=== PATIENT | male | born 1975 | race Two or more races ===

== ENCOUNTER → 2016-04-09 13:50 | Emergency (ER) | payer SELFPAY ==
[2016-04-09 13:57] VITALS: BP 146/83
== END | disposition left against medical advice (07) ==
LOC: ED 13:50
DX: R06.02 Shortness of breath (principal)

== ENCOUNTER 2016-05-18 11:31 | Emergency (ER) | payer BC ==
[2016-05-18] MEDS ORDERED: Aspirin Low Dose CHEW TAB* 81 MG PO ONE (12:31)
[2016-05-18 12:45] LABS: Hematocrit 43 % (42-52); Hemoglobin 14.7 g/dl (14.0-18.0); Mean Corpuscular HGB Conc 34 g/dl (31-36); Mean Corpuscular Hemoglobin 29 pg (27-31); Mean Corpuscular Volume 85 fL (80-94); Mean Platelet Volume 7 um3 (7.4-10.4); Red Blood Count 5.01 10^6/ul (4.0-5.4); Red Cell Distribution Width 13 % (10.5-15); White Blood Count 7.4 10^3/ul (3.5-10.8)
[2016-05-18] MEDS ORDERED: hydrOXYzine HCL TAB* 50 MG PO ONE (12:52)
[2016-05-18] MEDS ORDERED: Ketorolac INJ* 30 MG/ML 1 ML VIAL IV PUSH ONE (12:52)
[2016-05-18 13:00] LABS: Albumin 4.7 g/dL (3.2-5.2); BUN/Creatinine Ratio 19.4 (8-20); Calcium 9.8 mg/dL (8.6-10.3); EGFR African American 103.4 (>60); EGFR Non-African American 80.4 (>60); Globulin 3.2 g/dL (2-4); Magnesium 2.2 mg/dL (1.9-2.7); Potassium 3.9 mmol/L (3.5-5.0); Total Bilirubin 0.6 mg/dL (0.2-1.0); Total Protein 7.9 g/dL (6.4-8.9)
--- NOTE | 2016-05-18 13:16 | RAD ---
INDICATION: Chest pain COMPARISON: None. TECHNIQUE: Single AP portable view of the chest was obtained. FINDINGS: Image quality is compromised due to the relative inferiority of a portable chest x-ray. The heart and mediastinum exhibit normal size and contour. The lungs are grossly clear. There is no evidence of a large pleural effusion. Visualized bones are normal for the patient's age. IMPRESSION: No radiographic evidence for acute cardiopulmonary abnormality on this portable chest x-ray.
[2016-05-18 14:59] LABS: Urine Bilirubin Negative (Negative); Urine Glucose Negative (Negative); Urine Nitrite Negative (Negative)
--- NOTE | 2016-05-18 15:04 | ED ---
Carlos Stahl Karl, scribed for Travis Samson MD on 05/18/16 at 1241 . HPI Chest Pain - HPI Summary HPI Summary: 40 y/o M presents with c/o weakness and constant midsternal 5/10 CP for the past several days. Pt stated that he had a near-syncope several days ago and has been feeling "really weak" with constant CP that "just won't go away." Pt also reported SOB with these sx for the past few months, beginning after the mother of his children past away in a car accident. Pt denied nausea and vomiting. - History of Current Complaint Chief Complaint: EDChestPainROMI Time Seen by Provider: 05/18/16 12:31 Hx Obtained From: Patient Timing: Constant Initial Severity: Moderate Current Severity: Moderate Pain Intensity: 5 - CP Pain Scale Used: 0-10 Numeric Chest Pain Location: Mid Sternal - Allergy/Home Medications Allergies/Adverse Reactions: Allergies Allergy/AdvReac Type Severity Reaction Status Date / Time No Known Allergies Allergy Verified 05/18/16 11:54 PMH/Surg Hx/FS Hx/Imm Hx Previously Healthy: Yes Infectious Disease History: No Infectious Disease History: Denies: Traveled Outside the [place] in Last 30 Days - Family History Known Family History: Positive: Other - pt is poor historian, has no knowledge of family hx - Social History Alcohol Use: Rare Substance Use Type: Reports: None Smoking Status (MU): Current Some Day Smoker Review of Systems Constitutional: Negative Eyes: Negative ENT: Negative Positive: Chest Pain Positive: Shortness Of Breath Negative: Vomiting, Nausea Genitourinary: Negative Musculoskeletal: Negative Skin: Negative Positive: Weakness Psychological: Normal All Other Systems Reviewed And Are Negative: Yes Physical Exam - Summary Physical Exam Summary: VITAL SIGNS: Reviewed. GENERAL: Patient is a well developed and nourished male who is lying comfortable in the stretcher. Patient is not in any acute respiratory distress. HEAD AND FACE: No signs of trauma. No ecchymosis, hematomas or skull depressions. No sinus tenderness. EYES: PERRLA, EOMI x 2, No injected conjunctiva, no nystagmus. EARS: Hearing grossly intact. Ear canals and tympanic membranes are within normal limits. MOUTH: Oropharynx within normal limits. NECK: Supple, trachea is midline, no adenopathy, no JVD, no carotid bruit, no c- spine tenderness, neck with full ROM. CHEST: Symmetric, positive reproduction of chest tenderness at palpation LUNGS: Clear to auscultation bilaterally. No wheezing or crackles. CVS: Regular rate and rhythm, S1 and S2 present, no murmurs or gallops appreciated. ABDOMEN: Soft, non-tender. No signs of distention. No rebound no guarding, and no masses palpated. Bowel sounds are normal. EXTREMITIES: FROM in all major joints, no edema, no cyanosis or clubbing. NEURO: Alert and oriented x 3. No acute neurological deficits. Speech is normal and follows commands. SKIN: Dry and warm Triage Information Reviewed: Yes Vital Signs On Initial Exam: Initial Vitals Temp Pulse Resp BP Pulse Ox 97.7 F 81 17 156/87 98 05/18/16 11:49 05/18/16 11:49 05/18/16 11:49 05/18/16 11:49 05/18/16 11:49 Vital Signs Reviewed: Yes Diagnostics - Vital Signs Vital Signs Temp Pulse Resp BP Pulse Ox 05/18/16 11:49 97.7 F 81 17 156/87 98 - Laboratory Lab Results: Lab Results 05/18/16 Range/Units 12:35 WBC 7.4 (3.5-10.8) 10^3/ul RBC 5.01 (4.0-5.4) 10^6/ul Hgb 14.7 (14.0-18.0) g/dl Hct 43 (42-52) % MCV 85 (80-94) fL MCH 29 (27-31) pg MCHC 34 (31-36) g/dl RDW 13 (10.5-15) % Plt Count 252 (150-450) 10^3/ul MPV 7 L (7.4-10.4) um3 Neut % (Auto) 66.1 (38-83) % Lymph % (Auto) 27.8 (25-47) % [place] % (Auto) 5.0 (1-9) % Eos % (Auto) 0.7 (0-6) % Baso % (Auto) 0.4 (0-2) % Absolute Neuts (auto) 4.9 (1.5-7.7) 10^3/ul Absolute Lymphs (auto) 2.1 (1.0-4.8) 10^3/ul Absolute Monos (auto) 0.4 (0-0.8) 10^3/ul Absolute Eos (auto) 0.1 (0-0.6) 10^3/ul Absolute Basos (auto) 0 (0-0.2) 10^3/ul Absolute Nucleated RBC 0 10^3/ul Nucleated RBC % 0 Result Diagrams: 05/18/16 12:35 05/18/16 12:35 Lab Statement: Any lab studies that have been ordered have been reviewed, and results considered in the medical decision making process. - Radiology CXR Xray Interpretation: No Acute Changes Radiology Interpretation Completed By: Radiologist - IMPRESSION: No radiographic evidence for acute cardiopulmonary abnormality on this portable chest x-ray. - EKG 11:37 EKG Interpretation: NSR at 69 bpm, No ST elevation Chest Pain Course/Dx - Course Assessment/Plan: Blood work wnl except for glucose of 113. Troponin is 0.0. CXR : No acute cardiopulmonary pathology. EKG: NSR at 69 BPM w/o LESLIE. Patient reported a lot of anxiety and similar symptoms for the last couple months after her significant other pass away. He reports he has been under a lot of stress. I believe most of his symptoms are secondary to his anxiety. Since all workup is negative. In the ED course he was hydrated with IV fluids and he was given Toradol ofr the CP and Atarax for anxiety. After these medications all his symptoms resolved. Patient reports that all symptoms have resolved. Patient has been observed in the ER for approximately 3 hours. Because the patient has no significant comorbidities and no family history of cardiovascular disease the patient will be discharged home with follow up of PMD. I discussed all the findings and test results with the patient. Patient was instructed to return to the emergency room immediately if any of the symptoms return or worsens. Patient understands and agrees. Plan of care was discussed with the patient and patient understands and agrees. All questions were answered at patient satisfaction. There were no further complaints or concerns. PE before discharge : CVS: S1 and S2 present. No murmurs appreciated. Abdominal exam before discharge: Soft, non-tender. No signs of distention. No rebound no guarding, and no masses palpated. Bowel sounds are normal. Patient is alert and oriented x 3. Patient is hemodynamically stable. - Chest Pain Differential Diagnosis/HQI/PQRI: Angina, Chest Wall, GI Disease, Lower Respiratory Infection, Other: - Anxiety - Diagnoses Provider Diagnoses: Chest pain, Anxiety Discharge - Discharge Plan Condition: Stable Disposition: HOME Prescriptions: Ibuprofen TAB* [Motrin TAB* 600 MG] 600 mg PO Q6H PRN #20 tab PRN Reason: Pain hydrOXYzine HCL TAB* [Atarax TAB*] 25 mg PO TID PRN #30 tab PRN Reason: Anxiety Patient Education Materials: Chest Pain (ED), Anxiety (ED) Referrals: No Primary Care Phys,NOPCP [Primary Care Provider] - Additional Instructions: Please follow up with your primary care provider. Return to the emergency department for changing or worsening symptoms. The documentation as recorded by the Carlos ricardo Karl accurately reflects the service I personally performed and the decisions made by Chapin douglas Walter, MD.
[2016-05-18 15:17] VITALS: BP 122/82
== END 2016-05-18 15:18 | disposition home or self-care (01) ==
LOC: ED 11:31
DX: R07.9 Chest pain, unspecified (principal); R06.02 Shortness of breath; F41.9 Anxiety disorder, unspecified
CPT/HCPCS: 36415; 71010; 80053; 81003; 82553; 83735; 83874; 83880; 84484; 85025; 93005; 99283; A9270-GY; J1885

== ENCOUNTER 2017-02-25 01:24 | Emergency (ER) | payer BC ==
[2017-02-25] MEDS ORDERED: Amoxicillin PO (*) 500 MG CAP PO ONE (01:55)
[2017-02-25] MEDS ORDERED: Ketorolac INJ* 60 MG/2 ML VIAL IM ONE (01:55)
--- NOTE | 2017-02-25 02:00 | ED ---
Throat Pain/Nasal Congestion - HPI Summary HPI Summary: 41 male presents to ED with complaints of dental pain that began 2-3 days ago and has worsened. States he took some old percocet without relief. No recent trauma/injury, just caries and exposed nerve roots. Denies redness, swelling, drainage, difficulty breathing, difficulty swallowing and fever/chills. States pain is worsened with eating and using teeth. Pain starts on front upper right tooth and radiates into right upper molars. States he has had this pain in the past and "has bad teeth". Could not take the pain any longer, plans on seeing a dentist tomorrow. No other complaints. No PMHx. - History of Current Complaint Chief Complaint: EDDentalPain Time Seen by Provider: 02/25/17 01:40 Hx Obtained From: Patient Onset/Duration: Sudden Onset, Lasting Days, Still Present, Worse Since Severity: Moderate Cough: None - Allergies/Home Medications Allergies/Adverse Reactions: Allergies Allergy/AdvReac Type Severity Reaction Status Date / Time No Known Allergies Allergy Verified 02/25/17 01:37 PMH/Surg Hx/FS Hx/Imm Hx Endocrine/Hematology History: Denies: Hx Diabetes Cardiovascular History: Denies: Hx Hypertension Respiratory History: Denies: Hx Asthma - Immunization History Immunizations Up to Date: Yes Infectious Disease History: No Infectious Disease History: Denies: Traveled Outside the [place] in Last 30 Days - Family History Known Family History: Positive: Other - pt is poor historian, has no knowledge of family hx - Social History Alcohol Use: Rare Substance Use Type: Reports: None Smoking Status (MU): Current Some Day Smoker Review of Systems Constitutional: Negative Positive: Dental Pain Cardiovascular: Negative Respiratory: Negative All Other Systems Reviewed And Are Negative: Yes Physical Exam Triage Information Reviewed: Yes Vital Signs On Initial Exam: Initial Vitals Temp Pulse Resp BP Pulse Ox 97.1 F 74 16 133/109 100 02/25/17 01:25 02/25/17 01:25 02/25/17 01:25 02/25/17 01:25 02/25/17 01:25 Vital Signs Reviewed: Yes Appearance: Positive: Well-Appearing, No Pain Distress, Well-Nourished Skin: Positive: Warm, Skin Color Reflects Adequate Perfusion, Dry. Negative: Cyanosis @, Pale, Erythema @ Head/Face: Positive: Normal Head/Face Inspection. Negative: Scalp Eyes: Positive: Conjunctiva Clear ENT: Positive: Hearing grossly normal Dental: Positive: Gross Decay/Caries @, Dental Fracture @. Negative: Percussion Tenderness @, Abscess @, Cervical Lymphadenopathy Neck: Positive: Supple, Nontender, No Lymphadenopathy Respiratory/Lung Sounds: Positive: Clear to Auscultation, Breath Sounds Present. Negative: Rales, Rhonchi, Wheezes Cardiovascular: Positive: Normal, RRR, Pulses are Symmetrical in both Upper and Lower Extremities. Negative: Murmur, Rub Musculoskeletal: Positive: Normal, Strength/ROM Intact Neurological: Positive: Normal, Sensory/Motor Intact, Alert, Oriented to Person Place, Time - [place] Coma Scale Coma Scale Total: 15 Diagnostics - Vital Signs Vital Signs Temp Pulse Resp BP Pulse Ox 02/25/17 01:25 97.1 F 74 16 133/109 100 - Laboratory Lab Statement: Any lab studies that have been ordered have been reviewed, and results considered in the medical decision making process. EENT Course/Dx - Course Course Of Treatment: given topical anesthetic. toradol and amox. continue at home. pain management and antibiotic. salt water swishes. fluids. avoid cold foods. follow up with dentist. aware of worsening signs and symptoms. no concern for other etiology at this time. - Differential Diagnoses Differential Diagnoses: Dental Abscess, Dental Caries, Fractured Tooth - Diagnoses Provider Diagnoses: Pain, dental, Dental infection Discharge - Discharge Plan Condition: Stable Disposition: HOME Prescriptions: Amoxicillin PO (*) [Amoxicillin 500 MG CAP*] 500 mg PO Q12H #19 cap HYDROcodone/ACETAMIN 5-325 MG* [[place] 5-325 TAB*] 1 tab PO Q6H PRN #10 tab MDD 2 PRN Reason: Pain Patient Education Materials: Toothache (ED), Dental Abscess (ED) Referrals: Rashi Hart DDS [Doctor of Dental Surgery] - [facility] [place] [facility] [Outside] Additional Instructions: Take medications as prescribed starting tomorrow. Take ibuprofen 600mg every 6 hours with food for pain and inflammation. Increase fluid intake. Recommend using oragel over the counter Salt water swishes. Follow up with dentist. Any new or worsening symptoms please return.
[2017-02-25 02:11] VITALS: BP 138/92
[2017-02-25] MEDS ORDERED: Benzocaine (DENTAL) 10%* TOP.GEL TOPICAL ONE (02:30)
== END 2017-02-25 02:15 | disposition home or self-care (01) ==
LOC: ED 01:24
DX: K08.89 Other specified disorders of teeth and supporting structures (principal); K04.7 Periapical abscess without sinus; F17.200 Nicotine dependence, unspecified, uncomplicated
CPT/HCPCS: 96372; 99282; A9270-GY; J1885

== ENCOUNTER 2017-08-19 08:24 | Emergency (ER) | payer BC ==
[2017-08-19] MEDS ORDERED: Indomethacin CAP* 25 MG CAP PO ONE (08:41)
[2017-08-19] MEDS ORDERED: Colchicine* 0.6 MG TAB PO ONE (08:42)
--- NOTE | 2017-08-19 09:08 | RAD ---
HISTORY: Left foot pain, left ankle pain COMPARISONS: None VIEWS: 2, Frontal and lateral views of the left foot FINDINGS: BONE DENSITY: Normal. BONES: There is no displaced fracture. JOINTS: There is no arthropathy. ALIGNMENT: There is no dislocation. SOFT TISSUES: Unremarkable. OTHER FINDINGS: None. IMPRESSION: NO ACUTE OSSEOUS INJURY. IF SYMPTOMS PERSIST, RECOMMEND REPEAT IMAGING.
[2017-08-19 09:53] VITALS: BP 150/90
--- NOTE | 2017-08-19 10:46 | ED ---
Sandra Stahl Gabriel, scribed for Bob Rivera MD on 08/19/17 at 0846 . Lower Extremity - HPI Summary HPI Summary: This patient is a 41 year old M presenting to [facility] accompanied by his friend with a chief complaint of left foot pain that began yesterday morning. The patient rates the pain 10/10 in severity and states it is located on the dorsal aspect of the foot, laterally. Symptoms aggravated by standing and movement. Patient reports increased warmth. Patient denies trauma, swelling, fever, STD, recent illness, and rash. - History of Current Complaint Chief Complaint: EDExtremityLower Stated Complaint: LT ANKLE/LEG PROBLEM Time Seen by Provider: 08/19/17 08:34 Hx Obtained From: Patient Mechanism Of Injury: Other - none Onset/Duration: Days Severity Initially: Severe Severity Currently: Severe Pain Intensity: 10 Pain Scale Used: 0-10 Numeric Timing: Constant Associated Signs And Symptoms: Positive: Other - increased warmth. Negative: Swelling Aggravating Factor(s): Standing, Movement, Weight Bearing Able to Bear Weight: Yes - Allergies/Home Medications Allergies/Adverse Reactions: Allergies Allergy/AdvReac Type Severity Reaction Status Date / Time No Known Allergies Allergy Verified 02/25/17 01:37 PMH/Surg Hx/FS Hx/Imm Hx Endocrine/Hematology History: Denies: Hx Diabetes Cardiovascular History: Denies: Hx Hypertension Respiratory History: Denies: Hx Asthma Psychiatric History: Reports: Hx Anxiety - doesn't take medication Infectious Disease History: No Infectious Disease History: Denies: Traveled Outside the [place] in Last 30 Days - Family History Known Family History: Positive: Other - pt is poor historian, has no knowledge of family hx Negative: Seizure Disorder - Social History Occupation: Employed Full-time Alcohol Use: Rare Substance Use Type: Reports: None Smoking Status (MU): Current Some Day Smoker Review of Systems Constitutional: Negative - trauma and recent illness Negative: Fever Negative: Edema Positive: Other - increased warmth . Negative: Rash All Other Systems Reviewed And Are Negative: Yes Physical Exam - Summary Physical Exam Summary: Appearance: Well appearing, no pain distress Skin: warm, dry, reflects adequate perfusion Head/face: normal Eyes: EOMI, EDMOND ENT: normal Neck: supple, non-tender Respiratory: CTA, breath sounds present Cardiovascular: RRR, pulses symmetrical Abdomen: non-tender, soft Bowel Sounds: present Musculoskeletal: strength/ROM intact, no joint swelling or effusion, pain with flexion and extension at the ankle. There is no bony tenderness or edema Neuro: normal, sensory motor intact, A&Ox3 Triage Information Reviewed: Yes Vital Signs On Initial Exam: Initial Vitals Temp Pulse Resp BP Pulse Ox 98.1 F 65 16 126/98 99 08/19/17 08:28 08/19/17 08:28 08/19/17 08:28 08/19/17 08:28 08/19/17 08:28 Vital Signs Reviewed: Yes Procedures - Procedure Summary Procedure Summary: Arthrocentesis left ankle: A timeout was performed after verbally consenting the patient. The left ankle was cleaned extensively with ChloraPrep. Sterile drape was placed. 1 cc of bupivacaine 0.5% was injected in the skin overlying the lateral ankle joint. The joint was accessed via 18-gauge needle via a lateral approach. No synovial fluid was obtained however there was a small amount, 4 cc , of dark blood obtained. 1 cc of bupivacaine was injected into the joint space. The patient's pain improved modestly. He tolerated this well without complication. No specimen was able to be obtained. Trace bleeding from the skin. No complications. Diagnostics - Vital Signs Vital Signs Temp Pulse Resp BP Pulse Ox 08/19/17 08:28 98.1 F 65 16 126/98 99 - Laboratory Lab Statement: Any lab studies that have been ordered have been reviewed, and results considered in the medical decision making process. - Radiology foot xray Radiology Interpretation Completed By: Radiologist - NO ACUTE OSSEOUS INJURY. IF SYMPTOMS PERSIST, RECOMMEND REPEAT IMAGING. ED physician has reviewed this radiology report. Re-Evaluation - Re-Evaluation First Eval Re-Evaluation Time: 09:41 Change: Improved Comment: I discussed test results with the pt and he is feeling better. Lower Extremity Course/Dx - Course Course Of Treatment: Patient with atraumatic pain in the left ankle without effusion. Attempted arthrocentesis with only a small amount of dark blood returned. This could be the cause of his pain or from outside the joint space. Discussed the case with orthopedist who agrees with my diagnostics and treatment. He had been given colchicine and indomethacin here. He is not febrile nor is there effusion indicating possible joint sepsis. We'll continue same outpatient. Damián wrap applied. Patient able to walk on joint with mild antalgia. - Diagnoses Differential Diagnosis/HQI/PQRI: Positive: Other - Crystalline based arthritis, inflammatory arthritis, infectious arthritis Provider Diagnoses: Arthralgia - Physician Notifications Discussed Care Of Patient With: David Whitt Time Discussed With Above Provider: 09:20 Instructed by Provider To: Other - We discussed patient care with Dr. Whitt and he states there can be vascular malformation present. Discharge - Sign-Out/Discharge Documenting (check all that apply): Discharge/Admit/Transfer - Discharge Plan Condition: Good Disposition: HOME Prescriptions: Colchicine [Mitigare] 0.6 mg PO TID PRN #6 capsule PRN Reason: ankle pain Indomethacin CAP* [Indocin CAP*] 50 mg PO TID PRN #15 cap PRN Reason: Pain Patient Education Materials: Gout (ED), Arthralgia (ED) Referrals: [place] [Outside] Additional Instructions: Ice, elevate and keep the ankle Damián wrapped. Return with fever, increased pain/ redness, worse or other concerns as discussed. Keep elevated while at rest. This could be gout as discussed or other forms of arthritis. - Billing Disposition and Condition Condition: GOOD Disposition: HOME The documentation as recorded by the Sandra ricardo Gabriel accurately reflects the service I personally performed and the decisions made by me, Bob Rivera MD.
== END 2017-08-19 09:52 | disposition home or self-care (01) ==
LOC: ED 08:24
DX: M25.572 Pain in left ankle and joints of left foot (principal); F41.9 Anxiety disorder, unspecified; Z72.0 Tobacco use
CPT/HCPCS: 20605; 99281; A9270-GY